=== PATIENT | female | born 1955 | race Hispanic/Latino ===

== ENCOUNTER 2018-07-10 12:42 | Outpatient (CLI) | payer MEDICARE ==
--- NOTE | 2018-07-10 18:13 | Cat Scan Report ---
FINAL REPORT EXAM: CT ABDOMEN WO CON HISTORY: RENAL MASS TECHNIQUE: CT abdomen was performed. Images extend from diaphragm to below iliac crests. No IV contrast was administered. Axial images and coronal and sagittal reformatted images were obtained PRIORS: None. FINDINGS: The visualized aspects of the lung bases are clear. Evaluation of solid organs is limited due to lack of IV contrast. Within the limitations of a non-enhanced study, the visualized liver, spleen, right adrenal gland and right kidney demonstrate no significant abnormalities. There are numerous soft tissue masses seen. These are seen in the retroperitoneum, specifically perinephric region, renal hilum, para-aortic, and around the pancreatic tail. There are additional masses in left retroperitoneum anterior to the a psoas muscle. There also some retrocrural masses. Findings are highly concerning for malignancy. While findings could be renal origin abnormality such as lymphoma not excluded. A discrete renal mass is difficult to confirm. There is moderate right hydronephrosis. Obstruction of the renal pelvis likely from masses in the region. Left adrenal gland is poorly visualized due to masses in the region. There may or may not be involved. There is no evidence of intestinal obstruction. There are no abnormal fluid collections seen. The visualized appendix is normal. There is no free intraperitoneal air. There is bony destruction involving L2 vertebra, highly suspicious for metastatic disease. There is also prominent degenerative change throughout the lumbar spine. IMPRESSION: Multiple irregular soft tissue masses involving left retroperitoneum. Soft tissue mass is identified in perinephric space, left renal hilum, para-aortic region, left anterior para renal space around pancreatic tail, and retrocrural. Findings are highly suggestive of malignancy. While this could be renal origin, abnormality such as lymphoma not excluded. An actual mass involving left kidney is not confirmed or excluded. Evaluation limited due to lack of contrast. There is some left hydronephrosis suggesting associated obstruction at the renal pelvis. L2 destructive lesion is compatible with metastatic disease.
== END 2018-07-10 12:43 | disposition home or self-care (01) ==
LOC: CT 12:42
PROVIDERS: ATTEND Urology
DX: N28.89 Other specified disorders of kidney and ureter (principal); N13.30 Unspecified hydronephrosis
CPT/HCPCS: 36415; 74150; 82565; 84520

== ENCOUNTER 2018-07-24 08:23 | Day surgery (SDC) | payer MEDICARE ==
[2018-07-24] MEDS ORDERED: ANCEF/STERILE WATER 2 GM/20 ML 2 GM/20 ML SYRINGE IV NR (09:00)
[2018-07-24] MEDS ORDERED: NACL BACTERIOSTATIC INFILTRATI ONE (09:35)
[2018-07-24 10:25] LABS: Basophils % (Auto) 0.3 % (0.0-1.8); Eosinophils % (Auto) 0.2 % (0.0-4.3); Hematocrit 35.1 % (30.3-42.9); Hemoglobin 11.5 gm/dl (10.1-14.3); Lymphocytes % (Auto) 10.8 % (13.4-35.0); Mean Corpuscular HGB Conc 33 % (30-34); Mean Corpuscular Hemoglobin 24 pg (28-32); Mean Corpuscular Volume 74 fl (79-97); Monocytes # (Auto) 0.4 K/mm3 (0.0-0.8); Monocytes % (Auto) 4.9 % (0.0-7.3); Platelet Count 249 K/mm3 (140-440); Red Blood Count 4.72 M/mm3 (3.65-5.03); Red Cell Distribution Width 19.2 % (13.2-15.2)
[2018-07-24] MEDS ORDERED: NACL 0.9% 1000 ML 1,000 ML IV SCH (11:00)
[2018-07-24] MEDS ORDERED: VERSED IV NR (11:00)
[2018-07-24] MEDS ORDERED: PEPCID IV NR (11:00)
[2018-07-24 11:07] LABS: Calcium 9.9 mg/dL (8.4-10.2)
[2018-07-24] MEDS ORDERED: ZOFRAN IV PRN (11:28)
[2018-07-24] MEDS ORDERED: DILAUDID IV PRN (11:28)
[2018-07-24] MEDS ORDERED: XYLOCAINE MPF 2% ONE (12:00)
[2018-07-24] MEDS ORDERED: LACTATED RINGERS 1,000 ML IV SCH (12:00)
[2018-07-24] MEDS ORDERED: SUBLIMAZE ONE (12:00)
[2018-07-24] MEDS ORDERED: DIPRIVAN 10 MG/ML IV ONE (12:00)
[2018-07-24] MEDS ORDERED: ZOFRAN ONE (12:01)
--- NOTE | 2018-07-24 12:21 | Post Operative Note ---
Date of procedure: 07/24/18 Pre-op diagnosis: l renal mass retrop tumor Post-op diagnosis: same Findings: as above Procedure: cysto rpgs Anesthesia: GETA Surgeon: MADELAINE MACK Estimated blood loss: minimal Condition: stable Disposition: PACU
--- NOTE | 2018-07-24 12:22 | Discharge Summary ---
Short Stay Discharge Plan Activity: other (no straining ) Weight Bearing Status: Full Weight Bearing Diet: low fat, low salt Special Instructions: other (inc fluids ) Follow up with: IRENE CHAVEZ MD [Primary Care Provider] - 7 Days MADELAINE MACK MD [Staff Physician] - 7 Days
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
--- NOTE | 2018-07-24 15:03 | Operative Report ---
PREOPERATIVE DIAGNOSIS: Infiltrative process involving left kidney. POSTOPERATIVE DIAGNOSES: Severe extrinsic compression of the upper ureter and kidney and collecting system. PROCEDURE: Cystoscopy, retrograde. SURGEON: Luigi Booker MD ANESTHESIA: General. FINDINGS: This is a woman, who has severe back pain, has this infiltrative process, left retroperitoneum, possibly involving the pancreas, periaortic nodes and ureter and kidney. She now presents for cystoscopy. DESCRIPTION OF PROCEDURE: The patient brought to the operating room and placed on the operating table. Following induction of anesthesia, placed in lithotomy position, prepped and draped in usual sterile fashion. Cystourethroscopy showed no bladder cancer. Urine was obtained for cytology. Left retrograde showed no diarrhea passing the mid ureter except for a little wisp that went into the kidney, but we could make out a very thin ureter that was encased in some sort of mass. Right side was normal. We did not try to ureteroscope her because this looks to be extrinsic, although it could be transitional cell. We will see what the cytology shows, but she has had a negative cytology in the office. At this point, this may very well be lymphoma. I consulted Dr. Hodge, Dr. Sweeney, percutaneous biopsies in order. She was brought to recovery in stable condition. Family notified. JOB# [id number] CARLA/LIZBET
--- NOTE | 2018-07-24 15:34 | Fluoroscopy Report ---
FLUOROSCOPY RETROGRADE UROGRAPHY: HISTORY: Left renal mass, hematuria. FINDINGS: Fluoroscopy was provided by radiology during retrograde urography by the urologist. 9 fluoroscopic images were captured. There is adequate filling of the right intrarenal collecting system and ureter. Only the mid and distal left ureter is completely opacified which has a normal appearance. The proximal left ureter and left intrarenal collecting system are poorly opacified with suggestion of multiple noncalcified filling defects. This could represent blood clots/mass although other etiologies are not excluded. No calcified stone is appreciated. IMPRESSION: Normal right retrograde pyelogram. Poor opacification of the proximal left collecting system as described.
[2018-07-24 16:59] VITALS: BP 114/66
== END 2018-07-24 15:10 | disposition home or self-care (01) ==
LOC: OR 08:23
PROVIDERS: ATTEND Urology
DX: R31.9 Hematuria, unspecified (principal); N28.89 Other specified disorders of kidney and ureter; E78.00 Pure hypercholesterolemia, unspecified; I10 Essential (primary) hypertension; F32.9 Major depressive disorder, single episode, unspecified; F41.9 Anxiety disorder, unspecified; Z90.710 Acquired absence of both cervix and uterus; Z86.2 Personal history of diseases of the blood and blood-forming organs and certain disorders involving the immune mechanism; Z85.89 Personal history of malignant neoplasm of other organs and systems; Z85.830 Personal history of malignant neoplasm of bone; Z88.8 Allergy status to other drugs, medicaments and biological substances; Z79.82 Long term (current) use of aspirin; Z79.899 Other long term (current) drug therapy; Z79.4 Long term (current) use of insulin; Z87.891 Personal history of nicotine dependence; Z86.73 Personal history of transient ischemic attack (TIA), and cerebral infarction without residual deficits
CPT/HCPCS: 36415; 52005; 74420; 80048; 82962; 85025; 88112; C1758; C1769; J0690; J2250; J2405; J2704; J3010; J7030; Q9967

== ENCOUNTER 2018-07-26 06:13 | Day surgery (SDC) | payer MEDICARE ==
[2018-07-26 07:19] LABS: Basophils % (Auto) 0.5 % (0.0-1.8); Eosinophils % (Auto) 0.2 % (0.0-4.3); Hematocrit 36.1 % (30.3-42.9); Hemoglobin 11.6 gm/dl (10.1-14.3); Lymphocytes # (Auto) 1.5 K/mm3 (1.2-5.4); Lymphocytes % (Auto) 19.6 % (13.4-35.0); Mean Corpuscular HGB Conc 32 % (30-34); Mean Corpuscular Hemoglobin 24 pg (28-32); Mean Corpuscular Volume 74 fl (79-97); Monocytes # (Auto) 0.6 K/mm3 (0.0-0.8); Monocytes % (Auto) 8.4 % (0.0-7.3); Platelet Count 264 K/mm3 (140-440); Red Blood Count 4.85 M/mm3 (3.65-5.03); Red Cell Distribution Width 19.2 % (13.2-15.2)
[2018-07-26 07:22] LABS: Partial Thromboplastin Time 29.7 Sec. (24.2-36.6)
[2018-07-26 08:47] LABS: Calcium 9.8 mg/dL (8.4-10.2)
[2018-07-26] MEDS ORDERED: VERSED IV NR (08:54)
[2018-07-26] MEDS ORDERED: SUBLIMAZE IV NR (08:54)
[2018-07-26] MEDS ORDERED: NACL 0.9% 500 ML 500 ML IV SCH (09:00)
[2018-07-26] MEDS ORDERED: XYLOCAINE 1% 20 mL ONE (09:57)
--- NOTE | 2018-07-26 10:28 | Short Stay Summary ---
Short Stay Documentation Date of service: 07/26/18 - History Principal diagnosis: left para-renal enlrged lymphnodes Past Medical History: other (decreased renal function) Past Surgical History: Other (ureterogram) Social history: no significant social history - Allergies and Medications Current Medications: Allergies lisinopril Allergy (Verified 07/17/18 15:26) Nausea , DIZZINESS pioglitazone [From Actos] Allergy (Verified 07/17/18 15:29) Rash , SWELLING Zrpxwoz-Ppm-Lna Reductase Inhibitor Allergy (Verified 07/17/18 15:29) Rash, SWELLING exenatide [From Byetta] Adverse Reaction (Verified 07/17/18 15:28) PANCREATITIS SLOW IRON Allergy (Uncoded 07/17/18 15:29) Rash , SWELLING Home Medications Medication Instructions Recorded Confirmed Last Taken Type Amitriptyline [Elavil] 25 mg PO QHS 07/17/18 07/26/18 07/24/18 History Aspirin [Aspirin EC] 325 mg PO DAILY 07/17/18 07/26/18 1 Week Ago History ~07/19/18 Citalopram Hydrobromide 40 mg PO DAILY 07/17/18 07/26/18 07/23/18 History [Citalopram HBr] Glimepiride [Amaryl] 2 mg PO QAM 07/17/18 07/26/18 07/22/18 History Lansoprazole [Prevacid] 30 mg PO DAILY 07/17/18 07/26/18 07/24/18 03:00 History Oxycodone HCl [Roxicodone TAB] 15 mg PO Q6H 07/17/18 07/26/18 07/26/18 02:00 History Pramipexole [Mirapex] 0.5 mg PO BID 07/17/18 07/26/18 07/23/18 History Pregabalin [Lyrica] 25 mg PO QHS 07/17/18 07/26/18 07/23/18 History Propranolol LA [Inderal LA] 120 mg PO QDAY 07/17/18 07/26/18 07/24/18 03:00 History Spironolactone 75 mg PO BID 07/17/18 07/26/18 07/26/18 02:00 History Ergocalciferol [Vitamin D2] 1 cap PO QMONTH 1007/26/18 05/24/18 History Insulin Aspart [NovoLOG Flexpen] 1 unit SQ QID PRN 07/24/18 07/26/18 05/23/18 History Insulin Degludec [Tresiba 130 units SQ QDAY 07/24/18 07/26/18 05/24/18 History Flextouch U-100] fentaNYL [Fentanyl] 1 patch TD Q72H 07/24/18 07/26/18 07/24/18 History Active Medications Fentanyl (Sublimaze) 100 mcg IV ONCE NR Stop: 07/26/18 15:00 Sodium Chloride (Nacl 0.9% 500 Ml) 500 mls @ 50 mls/hr IV DIRECT RMAONA Midazolam HCl (Versed) 5 mg IV ONCE NR Stop: 07/26/18 15:00 - Physical exam General appearance: no acute distress HEENT: Atraumatic Lungs: Normal air movement Breasts: deferred Heart: Regular rate Gastrointestinal: normal Female Genitourinary: deferred Rectal Exam: deferred Extremities: Full ROM Neurological: Normal gait, Normal speech - Brief post op/procedure progress note Date of procedure: 07/26/18 Pre-op diagnosis: left para-renal masses Post-op diagnosis: same Procedure: left para-renal mass biopsy Anesthesia: local Surgeon: TATY STREET Estimated blood loss: minimal Pathology: none Condition: stable - Disposition Condition at discharge: Good Disposition: DC-01 TO HOME OR SELFCARE Short Stay Discharge Plan Activity: advance as tolerated Weight Bearing Status: Weight Bear as Tolerated Diet: regular Wound: keep clean and dry, per your surgeon's advice Follow up with: IRENE CHAVEZ MD [Primary Care Provider] - 7 Days Forms: Post Sedation D/C Instructions
[2018-07-26 12:10] VITALS: BP 131/63
--- NOTE | 2018-07-26 13:36 | Cat Scan Report ---
Exam: CT-guided biopsy of left pararenal masses Clinical indication: Hit with a history of left para-renal masses Date: 07/26/2018 Procedure: Following explanation of the risk, benefits and alternatives; written informed consent was obtained. Patient was brought to the CT suite and placed in prone position on the gantry. Initial private pilot images of her left back and flank were obtained an appropriate access site was chosen on the masses adjacent to the left kidney. Patient's skin was prepped and draped in the usual sterile fashion. 2% lidocaine was used for anesthesia. Using intermittent CT guidance, a 7 cm 17-gauge trocar needle was advanced to the margin one of the masses. The trocar was removed and a total of 2 core biopsies obtained and handed off to the pathologist in attendance. Samples were determined to be adequate for pathologic analysis. The needle was removed and hemostasis achieved using manual compression. Sterile compression dressing was then applied on the skin surface. The patient tolerated the procedure well. There were no immediate post procedure complications. Conscious sedation was performed under the guidance of radiologic nursing. Continuous cardiopulmonary monitoring was utilized. Impression: CT-guided biopsy of left pararenal masses with 2 core samples obtained and handed off to pathologist in attendance. Samples were determined to be adequate for pathologic analysis.
== END 2018-07-26 12:30 | disposition home or self-care (01) ==
LOC: CATHLABREC 06:13 → EDSTATUS 08:30 → CATHLABREC 12:30
PROVIDERS: ATTEND Radiology Diagnostic Radiology
DX: C96.9 Malignant neoplasm of lymphoid, hematopoietic and related tissue, unspecified (principal); E78.00 Pure hypercholesterolemia, unspecified; I10 Essential (primary) hypertension; F41.9 Anxiety disorder, unspecified; F32.9 Major depressive disorder, single episode, unspecified; D64.9 Anemia, unspecified; I69.854 Hemiplegia and hemiparesis following other cerebrovascular disease affecting left non-dominant side; Z79.82 Long term (current) use of aspirin; Z79.01 Long term (current) use of anticoagulants; Z79.899 Other long term (current) drug therapy; Z88.8 Allergy status to other drugs, medicaments and biological substances; Z90.710 Acquired absence of both cervix and uterus; Z85.830 Personal history of malignant neoplasm of bone
CPT/HCPCS: 36415; 38505; 77012; 80048; 85025; 85610; 85730; 88305; 88333; 88342; J2250; J3010; J7040

== ENCOUNTER 2018-12-28 10:33 | Outpatient (CLI) | payer MEDICARE ==
--- NOTE | 2018-12-29 09:58 | PET Report ---
PET/CT:12/28/18 10:33:00 CLINICAL: Urothelial carcinoma restaging. RADIOPHARMACEUTICAL: 13.04mCi F18-FDG. COMPARISON: 08/10/18 PET/CT TECHNIQUE- Following intravenous injection of F-18 FDG and an approximately 60 minute uptake period, CT and PET images from the mid skull to the upper thighs were acquired with the patient in the fasted state. No contrast was administered. The CT protocol used for this PET CT study is designed for attenuation correction and anatomic localization of PET abnormalities. This hat marker CT is not desired to produce and cannot replace, eomnn-is-kaj-art diagnostic CT scans with specific imaging protocols for different body parts and indications. Plasma glucose at the time of this test: 167g/dl. The standardized uptake values (SUV) are normalized to patient body weight and indicate the highest activity concentration (SUV max) in a given disease site. FINDINGS: Brain--Physiologic FDG uptake in the visualized regions of the brain. Neck--Physiologic FDG uptake in mucosal structures. No mass or lymphadenopathy. Chest--Physiologic FDG uptake in mediastinal blood pool and myocardium. Lungs--No abnormal uptake. No pulmonary nodule or mass. Pleura/pericardium--No abnormal uptake. Thoracic nodes--No abnormal uptake. Hepatobiliary--No abnormal uptake. Liver background SUV mean, as a reference for comparing FDG studies, is 3.6 compared to 3.3 on the last exam. No liver mass. However, new diffuse liver nodularity is particularly apparent on the surface of the liver. Spleen--No abnormal uptake. The spleen has enlarged and measures 15 cm in maximum. Retroperitoneum--Increased size of the FDG avid retroperitoneal mass with SUV 4.2 compared to 3.6. The pancreatic tail component of the mass measures 6.0 x 4.6 cm compared to 4.3 x 4.5 cm. There is greater encasement of the abdominal aorta and left perirenal masses have increased in size. Left paraspinal mass has increased in size. The left kidney is small with stable hydronephrosis. Left upper pole renal cyst measures 2.5 cm. The right kidney is normal. Left adrenal mass blends with the larger mass encases the aorta. The right adrenal gland is normal. Abdominopelvic Nodes--Individual enlarged lymph nodes are not discernible within the mass that encases the aorta. No significant pelvic lymphadenopathy. Bowel/Peritoneum/Mesentery--No abnormal uptake. Pelvic organs--No abnormal uptake. Bones/Soft Tissues--Increased number of skeletal lesions involving the thoracic and lumbar spine. Greater lytic destruction of the L2 vertebral body with complete collapse of the vertebral body. New lytic vertebral body lesions at T4, T12 and T10. A new sclerotic lesion to the left of midline involving the L1 vertebral body. No extension into the spinal canal at any level. IMPRESSION- 1. Progression of disease with increased size of retroperitoneal masses. 2. New lytic skeletal lesions involving the thoracic and lumbar spine. 3. 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 4. Interval development of liver nodularity suggesting either cirrhosis or pseudocirrhosis. There is also new splenomegaly suggesting portal hypertension. No suspicion of portal vein thrombosis on this noncontrast exam. 5. No evidence of pulmonary metastasis.
== END 2018-12-28 10:34 | disposition home or self-care (01) ==
LOC: PET 10:33
PROVIDERS: ATTEND Internal Medicine Hematology & Oncology
DX: C65.9 Malignant neoplasm of unspecified renal pelvis (principal); E11.9 Type 2 diabetes mellitus without complications; I10 Essential (primary) hypertension; N13.30 Unspecified hydronephrosis; E78.00 Pure hypercholesterolemia, unspecified; Z87.891 Personal history of nicotine dependence
CPT/HCPCS: 78815; 82962; A9552